=== PATIENT | male | born 1990 | race Caucasian/White ===

== ENCOUNTER 2019-05-20 16:40 | Inpatient (IN) | payer OTHER ==
[~2019-05-20] VITALS: Ht 172.7 cm; Wt 88.1 kg
[2019-05-20 16:41] VITALS: Ht 172.7 cm; Wt 88.1 kg
--- NOTE | 2019-05-20 16:52 | NUR ---
PT BIB AMBULANCE TODAY WITH C/C OF ALOC, AND POSSIBLE SEIZURE. PT WAS WORKING OUTSIDE IN THE YARD WHEN HE HAD A SUDDEN ONSET OF BEING ALTERED. PER MEDIC, HE WAS SPEAKING WITH CLIENT AND BECAME CONFUSED AND NOT SPEAKING APPROPRIATELY AND LOOKING OFF INTO THE MARLYS. PT REPORTS HIS LAST SEIZURE WAS SEVERAL MONTHS AGO, AND TAKES HIS DAILY SEIZURE MEDICATIONS HE SHOULD. PT DOES REPORT THAT HE IS ABLE TO FEEL WHEN HIS SEIZURES ARE GOING TO HAPPEN, AND REPORTS FEELING THE SAME WAY TODAY WITH THIS EPISODE OF ALOC. PT IS CURRENTLY AAOX4, WHEN ASKED PT WHO THE PRESIDENT WAS, PT ANSWERED CORRECTLY, HOWEVER, WAS DELAYED IN HIS ANSWER BECAUSE HE COULDN'T REMEMBER AT FIRST. PT IS ANSWERING QUESTIONS APPROPRIATELY AND ABLE RECALL RECENT EVENTS. DENIES ANY TRAUMA AND HAS NO OTHER COMPLAINTS AT THIS TIME. RESP E/U, NAD NOTED. PT CHANGED INTO GOWN, PLACED ON FULL CM AND PULSE OXIMETRY FOR MONITORING, AWAITING MSE. SEIZURE PRECAUTIONS IN PLACE.
--- NOTE | 2019-05-20 17:00 | NUR ---
REPORT RECEIVED FROM ZOYA HARMON.
--- NOTE | 2019-05-20 17:14 | NUR ---
PT MEDICATED PER ORDER, PT VERBALZIED UNDERSTANDING OF MEDICATION PRIOR TO ADMINISTRATION. PT GIVEN URINAL TO PROVIDE SAMPLE.
[2019-05-20 17:26] LABS: BASOPHIL % 1.6 % (0-2); PLATELET COUNT 248 x10^3mcL (130-400); RED CELL DISTRIBUTION WIDTH 13.6 % (11.5-14.5)
--- NOTE | 2019-05-20 17:31 | NUR ---
PT RETURNED FROM CT.
[2019-05-20 17:32] LABS: CALCIUM 9.1 mg/dL (8.5-10.1); CARBON DIOXIDE 24.7 mmol/L (21-32); CHLORIDE SERUM 101 mmol/L (98-107); GFR1 > 60 mL/min; GLUCOSE SERUM 100 mg/dL (74-106); POTASSIUM SERUM 3.6 mmol/L (3.5-5.1); SODIUM SERUM 138 mmol/L (136-145)
[2019-05-20 17:36] LABS: ALBUMIN 3.9 g/dL (3.4-5.0); ALKALINE PHOSPHATASE 74 U/L (46-116); ALT/SGPT 95 U/L (16-63); AST/SGOT 38 U/L (15-37); BILIRUBIN TOTAL 0.27 mg/dL (0.20-1.00); CHOLESTEROL 198 mg/dL (<200); TOTAL PROTEIN, SERUM 7.8 g/dL (6.4-8.2)
--- NOTE | 2019-05-20 17:48 | NUR ---
PT ON FULL CM, NAD NOTED, STS HE FEELS ''BACK TO NORMAL''. CALL LIGHT WITHIN REACH, AUNT AT BEDSIDE.
--- NOTE | 2019-05-20 18:19 | NUR ---
PT MEDICATED PER EMAR.
[2019-05-20 18:24] LABS: microscopic required? NO
[2019-05-20 18:52] LABS: urine erythrocyte NEGATIVE (NEGATIVE)
[2019-05-20 19:05] LABS: AMPHETAMINE QUAL UR NONE DETECTED (See below)
--- NOTE | 2019-05-20 19:13 | NUR ---
RECIEVED PT REPORT FROM JESSE KENNY, I WILL NOW ASSUME PRIMARY CARE OF PT
[2019-05-20] MEDS ORDERED: LAMICTAL25 M2 (19:15)
--- NOTE | 2019-05-20 19:15 | NUR ---
REPORT GIVEN TO ZOYA MCNAMARA TO ASSUME CARE OF PT.
[2019-05-20] MEDS ORDERED: BUSPIRONE HCL10 MG PO (19:17)
[2019-05-20] MEDS ORDERED: LEXAPRO20 MG (19:17)
[2019-05-20] MEDS ORDERED: BANOPHEN25 MG (19:18)
--- NOTE | 2019-05-20 19:18 | NUR ---
PT RESTING COMFORTABLY IN ED REMPIRE. PT DENIES ANY PAIN AT THIS TIME. PT IS A/O X4. PT RESPS ARE E/U. PT IS ANSWERING QUSTIONS APPROPRAIRTELY. NO ACD NOTED
--- NOTE | 2019-05-20 20:17 | NUR ---
GAVE PT REPORT TO SAMANTHA KENNY ON TELE FLOOR TO ASSUME PRIMARY CARE OF PT ONCE PT IS TRANSFERRED UPSTAIRS TO ROOM 255B.
[2019-05-20 20:40] LABS: MAGNESIUM 2.2 mg/dL (1.8-2.4); PHOSPHOROUS 3.2 mg/dL (2.5-4.9)
--- NOTE | 2019-05-20 20:44 | NUR ---
[facility]ON PREPARING TO TRANSPORT PT TO TELE FLOOR, PT STS HE DOES NOT WANT TO BE ADMITED STS HE "CAN JUST GO TO MY DR, THE HEART LEVELS ARE HIGH BECAUSE I HAD A SEIZURE," DR RICKETTS MADE AWARE AND AT BEDSIDE TO DISCUSS POC WITH PT.
[2019-05-20 20:53] LABS: T3 TOTAL 1.37 ng/mL
[2019-05-20 20:56] LABS: FREE T4 0.85 ng/dL (0.76-1.46); FREE THYROXINE INDEX 2.2 ug/dL (1.4-4.5)
--- NOTE | 2019-05-20 20:58 | NUR ---
PT TRANSFERRED UPSTAIRS TO [facility] FLOOR ROOM 255B VIA ED [facility]. PT WAS ACCOMPANIED BY VERA GRANDA AND JESSE KENNY. NO INCIDENT NOTED
--- NOTE | 2019-05-20 21:00 | NUR ---
RECEIVED PT FROM ED VIA FERMÍN ACCOMPANIED BY RN AND EMT. PT ABLE TO AMBULATE WITH STEADY GAIT TO BED. NO ACUTE DISTRESS NOTED. EVEN AND UNLABORED RESPIRATIONS ON RA. TELE#10 PLACED ON PT, READING SR 68. IV PATENT AND INTACT. ORIENTED PT TO ROOM AND SURROUNDINGS. BED IN LOWEST POSITION. SEIZURE PRECAUTION PLACE. SIDE RAILS UPX2. CALL LIGHT WITHIN REACH. WILL CONTINUE TO MONITOR.
[2019-05-20 21:18] VITALS: BP 130/84
[2019-05-20 21:32] VITALS: BP 130/84
--- NOTE | 2019-05-20 22:39 | NUR ---
ASSISTED PT FOR PREPARTION OF A SHOWER. IV COVERED. TELE MONITOR REMOVED AND ACCOUNTED FOR, MT MADE AWARE. PT ABLE TO AMBULATE WITH STEADY GAIT TO RESTROOM. WILL CONTINUE TO MONITOR.
--- NOTE | 2019-05-20 23:04 | NUR ---
SHOWER COMPLETED. PT TOLERATED WELL. REAPPLIED TELE MONITOR#10, READING SR 78. IV PATENT AND INTACT, RUNNING FLUIDS PER EMAR. BED IN LOWEST POSITION. SEIZURE PRECAUTION IN PLACE. SIDE RAILS UPX2. CALL LIGHT WITHIN REACH. WILL CONTINUE TO MONITOR.
--- NOTE | 2019-05-21 00:16 | NUR ---
PT ASLEEP COMFORTABLY IN BED. NO ACUTE DISTRESS NOTED. EVEN AND UNLABORED RESPIRATIONS ON RA. ON TELE #10 READING SR 67. IV PATENT AND INTACT RUNNING FLUIDS PER EMAR. BED IN LOWEST POSITION. SEIZURE PRECAUTION IN PLACE. SIDE RAILS UPX2. CALL LIGHT WITHIN REACH. WILL CONTINUE TO MONITOR.
--- NOTE | 2019-05-21 06:14 | NUR ---
PT SLEPT COMFORTABLY IN INTERVALS THROUGHOUT THE SHIFT. NO ACUTE CHANGES NOTED. AOX4. EVEN AND UNLABORED RESPIRATIONS ON RA. ON TELE #10 READING SR 66. IV PATENT AND INTACT RUNNING FLUIDS PER EMAR. ALL NEEDS TENDED TO AND MET. ALL SCHEDULED MEDICATIONS GIVEN. SEIZURE PRECAUTION IN PLACE. NO C/O PAIN. BED IN LOWEST POSITION. SIDE RAILS UPX2. CALL LIGHT WITHIN REACH. WILL ENDORSE TO ONCOMING SHIFT.
[2019-05-21 06:22] LABS: BASOPHIL % 0.6 % (0-2); PLATELET COUNT 237 x10^3mcL (130-400); RED CELL DISTRIBUTION WIDTH 13.8 % (11.5-14.5)
--- NOTE | 2019-05-21 07:12 | NUR ---
RECEIVED PT FROM KOHINOOR OPERATOR NURSE. PT RESTING IN BED, AOX4, RESP E/U ON RA. DENIES HEADACHE OR DIZZINESS, NO ACUTE DISTRESS NOTED. ON TELE 10 SHOWING NSR, HR: 67. IV TO LAC W/ NO SIGNS OF INFILTRATION, IVF INFUSING WELL. BED IN LOWEST POSITION AND CALL LIGHT WITHIN REACH. SEIZURE PRECAUTIONS MAINTAINED. WILL CONTINUE TO MONITOR.
[2019-05-21 07:56] VITALS: BP 112/57
[2019-05-21 07:57] LABS: CALCIUM 8.5 mg/dL (8.5-10.1); CARBON DIOXIDE 25.8 mmol/L (21-32); CHLORIDE SERUM 105 mmol/L (98-107); CREATININE SERUM 0.8 mg/dL (0.7-1.3); GFR1 > 60 mL/min; GLUCOSE SERUM 100 mg/dL (74-106); MAGNESIUM 2.1 mg/dL (1.8-2.4); PHOSPHOROUS 3.2 mg/dL (2.5-4.9); SODIUM SERUM 141 mmol/L (136-145)
--- NOTE | 2019-05-21 09:42 | NUR ---
ECHOCARDIOGRAM COMPLETED.
[2019-05-21 11:35] VITALS: BP 121/71
--- NOTE | 2019-05-21 12:40 | NUR ---
PT IN BED HAVING LUNCH, AOX4, RESP E/U ON RA. NO ACUTE DISTRESS NOTED AT THIS TIME. BED IN LOWEST POSITION AND CALL LIGHT WITHIN REACH. WILL CONTINUE TO MONITOR.
--- NOTE | 2019-05-21 13:10 | NUR ---
TELE NEURO CONSULT DONE AT PT BEDSIDE. DR. MACE STATED HE WILL FAX HIS ASSESSMENT.
[2019-05-21 16:50] VITALS: BP 124/72
--- NOTE | 2019-05-21 17:45 | NUR ---
PT IN BED HAVING DINNER, AOX4, RESP E/U ON RA. DENIES HEADACHE, DIZZINESS, OR PAIN. NO SIGNS OF ACUTE DISTRESS NOTED AT THIS TIME. IV TO LAC W/ NO SIGNS OF INFILTRATION, IVF INFUSING WELL. BED IN LOWEST POSITION, PADDED SIDE RAILS UP X2, SEIZURE PRECATIONS IN PLACE, CALL LIGHT WITHIN REACH. WILL ENDORSE TO ONCOMING NURSE.
--- NOTE | 2019-05-21 19:20 | NUR ---
CARE ASSUMED FROM OUTGOING RN. PT RESTING COMFORTABLY IN BED. FAMILY AT BEDSIDE. NO ACUTE DISTRESS NOTED. EVEN AND UNLABORED RESPIRATIONS ON RA. ON TELE #10 READING SR 75. IV PATENT AND INTACT RUNNING FLUIDS PER EMAR. DENIES ANY PAIN AT THIS TIME. SEIZURE PRECAUTION IN PLACE. NO SEIZURE ACTIVITY DURING THIS STAY. BED IN LOWEST POSITION. SIDE RAILS UPX2. CALL LIGHT WITHIN REACH. WILL CONTINUE TO MONITOR.
--- NOTE | 2019-05-21 20:05 | NUR ---
PT EXPERIENCED AN EPISODE OF TREMORS/SEIZURE. NO LOSS OF CONSCIOUSNESS. VS: 97.3, 74BPM, 18 RR, 132/75 (94), 98% ON 2LNC. 0/10 PAIN. NO ACUTE DISTRESS NOTED. AOX4. FAMILY AT BEDSIDE. WILL MAKE AWARE. WILL CONTINUE TO MONITOR.
[2019-05-21 20:06] VITALS: BP 132/75
--- NOTE | 2019-05-22 01:45 | NUR ---
PT ASLEEP COMFORTABLY IN BED. NO ACUTE DISTRESS NOTED. EVEN AND UNLABORED RESPIRATIONS ON RA. ON TELE # 10 READING SR 64. IV PATENT AND INTACT RUNNING FLUIDS PER EMAR. SEIZURE PRECAUTION IN PLACE. BED IN LOWEST POSITION. SIDE RAILS UPX2. CALL LIGHT WITHIN REACH. WILL CONTINUE TO MONITOR.
[2019-05-22 05:04] VITALS: BP 118/72
--- NOTE | 2019-05-22 06:24 | NUR ---
PT SLEPT COMFORTABLY IN INTERVALS THROUGHOUT THE SHIFT. EVEN AND UNLABORED RESPIRATIONS ON RA. ON TELE #10 READING SR 65. IV PATENT AND INTACT RUNNING FLUIDS PER EMAR. ALL NEEDS TENDED TO AND MET. ALL SCHEDULED MEDICATIONS GIVEN. PT HAD AN EPISODE OF TREMORS/SEIZURES FOR 40 SECS, NO LOSS OF CONSCIOUSNESS. SCHEDULED KEPPRA GIVEN PER EMAR. SEIZURE PRECAUTION IN PLACE. BED IN LOWEST POSITION. SIDE RAILS UPX2. CALL LIGHT WITHIN REACH. WILL ENDORSE TO ONCOMING SHIFT.
[2019-05-22 06:45] LABS: CALCIUM 8.2 mg/dL (8.5-10.1); CARBON DIOXIDE 22.9 mmol/L (21-32); CHLORIDE SERUM 107 mmol/L (98-107); CREATININE SERUM 0.8 mg/dL (0.7-1.3); GFR1 > 60 mL/min; GLUCOSE SERUM 114 mg/dL (74-106); POTASSIUM SERUM 4.3 mmol/L (3.5-5.1); SODIUM SERUM 140 mmol/L (136-145)
--- NOTE | 2019-05-22 07:00 | NUR ---
RECEIVED PT FROM JOY LOADER NURSE. PT RESTING IN BED, AOX4, RESP E/U ON RA. DENIES HEADACHE OR DIZZINESS, NO SIGNS OF ACTIVE SEIZURE OBSERVED. ON TELE 10 SHOWING NSR, HR: 62. IV TO LAC W/ NO SIGNS OF INFILTRATION, IVF INFUSING WELL. BED IN LOWEST POSITION, PADDED SIDE RAILS UP X2, SEIZURE PRECAUTIONS IN PLACE. CALL LIGHT WITHIN REACH. WILL CONTINUE TO MONITOR.
[2019-05-22 07:08] LABS: BASOPHIL % 0.5 % (0-2); PLATELET COUNT 231 x10^3mcL (130-400); RED CELL DISTRIBUTION WIDTH 14.3 % (11.5-14.5)
[2019-05-22 08:38] VITALS: BP 138/82
[2019-05-22] MEDS ORDERED: KEPPRA750 MG PO (10:51)
[2019-05-22] MEDS ORDERED: BANOPHEN25 MG PO (10:52)
[2019-05-22] MEDS ORDERED: LAMICTAL25 M2 PO (10:53)
[2019-05-22] MEDS ORDERED: LEXAPRO20 MG PO (10:53)
[2019-05-22 11:35] VITALS: BP 138/82
[2019-05-22] MEDS ORDERED: KEPPRA500 MG (11:44)
[2019-05-22] MEDS ORDERED: BUSPAR5 MG (11:45)
--- NOTE | 2019-05-22 12:05 | NUR ---
PT DISCHARGED. REVIEWED VISIT SUMMARY, EDUACTIONAL PACKET, RX MEDS AND FOLLOW UP INSTRCUTIONS W/ PT. PT AOX4, RESP E/U, VS STABLE, DENIES PAIN, HEADACHE OR DIZZINESS. IV TO LAC REMOVED, CATH INTACT, GAUZE DRESSING APPLIED. PT AMBULATORY TO JENN[facility]ER, ESCORTED BY FAMILY AND EXCHANGE ADMINISTRATOR JANY W/ NO ACUTE INCIDENCE.
== END 2019-05-22 16:53 | disposition home or self-care (01) | DRG 53 ==
LOC: ED 16:40 → DU 19:47
PROVIDERS: Emergency Medicine; ADMIT General Practice
DX: G40.909 Epilepsy, unspecified, not intractable, without status epilepticus (principal); G90.8 Other disorders of autonomic nervous system; E02 Subclinical iodine-deficiency hypothyroidism; F32.9 Major depressive disorder, single episode, unspecified; F41.9 Anxiety disorder, unspecified; E78.5 Hyperlipidemia, unspecified
CPT/HCPCS: 84439; G0378; G0480; J1953; J7030; Q0092; Q0163